=== PATIENT | female | born 1990 | race Caucasian/White ===

== ENCOUNTER → 2021-01-31 | Outpatient (CLI) | payer MEDICAID | END | disposition home or self-care (01) | LOC: LABWHC1 12:24 | PROVIDERS: ATTEND Obstetrics & Gynecology | DX: N92.6 Irregular menstruation, unspecified (principal) | CPT/HCPCS: 36415; 84702 ==

== ENCOUNTER 2021-08-04 10:45 | Day surgery (SDC) | payer MEDICAID ==
[2021-08-01 13:28] VITALS: BMI 28.6
[~2021-08-04 10:45] MED LIST: LACTATED RINGERS 1,000 ML IV SCH
[2021-08-04 11:03] VITALS: RESP 16; TEMP 97.4
[2021-08-04] MEDS ORDERED: LIDOCAINE 1% (10MG/ML) FOR IV START INTRADERMA ONE (11:18)
[2021-08-04] MEDS ORDERED: PROPOFOL 10 MG/ML 20 ML VIAL IV ONE (11:30)
--- NOTE | 2021-08-04 11:42 | P.OP ---
Date of Procedure: 08/04/21 Preoperative Diagnosis: GERD Postoperative Diagnosis: Esophagitis Gastritis Procedure(s) Performed: EGD with biopsy Anesthesia: MAC Surgeon: Hao Briones Estimated Blood Loss (ml): 2 Condition: stable Disposition: PACU Description of Procedure: Patient is brought operative suite placed left lateral venous position underwent sedation per department of anesthesia timeout performed correct patient correct procedure correct site was verified scope was passed from the oropharynx down the esophagus with ease under direct visualization into the stomach and into the first and second portion of the duodenum no abnormalities are noted within the duodenum the scope was withdrawn to the stomach and retroflexed and ample time was allowed for the stomach to insufflate and no significant have a hernia was noted there was some antral gastritis noted biopsy was taken to rule out H. pylori this scope was slowly withdrawn make sure to visualize all cordova and body of the stomach and no other abnormalities were noted the GE junction was identified and there was a mild esophagitis noted biopsies taken to rule out Walton's esophagitis. The scope was then withdrawn back to the esophagus and no other abnormalities are noted patient tolerated the procedure well no apparent complications
[2021-08-04 12:06] VITALS: BP 118/77; PULSE 72
== END 2021-08-04 12:44 | disposition home or self-care (01) ==
LOC: ORWHC2ENDO 10:45
PROVIDERS: ATTEND Student in an Organized Health Care Education/Training Program
DX: K21.9 Gastro-esophageal reflux disease without esophagitis (principal); K21.00 Gastro-esophageal reflux disease with esophagitis, without bleeding; M19.90 Unspecified osteoarthritis, unspecified site; K64.9 Unspecified hemorrhoids; F32.A Depression, unspecified; Z81.8 Family history of other mental and behavioral disorders; F17.200 Nicotine dependence, unspecified, uncomplicated; Z79.899 Other long term (current) drug therapy
CPT/HCPCS: 81025; 88305; 43239; J2704

== ENCOUNTER → 2022-03-16 | Outpatient (CLI) | payer MEDICAID ==
--- NOTE | 2022-03-16 13:45 | US ---
EXAMINATION TYPE: US pelvic complete DATE OF EXAM: 03/16/2022 COMPARISON: NONE CLINICAL HISTORY: N92.6 IRREGULAR MENSTRUATION, UNSPECIFIED. Infertility struggles since IUD was elsy nagi in Mar 2020, no other pelvic issues, G0 TECHNIQUE: TA. Transabdominal sonographic images of the pelvis were acquired. Date of LMP: 2 weeks ago EXAM MEASUREMENTS: Uterus: 8.2 x 4.1 x 3.3 cm Endometrial Stripe: 0.7 cm Right Ovary: 3.2 x 2.9 x 1.7 cm Left Ovary: 3.1 x 2.5 x 1.7 cm 1. Uterus: Anteverted wnl 2. Endometrium: wnl 3. Right Ovary: wnl 4. Left Ovary: 2.0 cm dominate follicle 5. Bilateral Adnexa: wnl 6. Posterior cul-de-sac: wnl IMPRESSION: 1. No evidence for acute process. 2. Endometrium within normal limits for thickness.
== END | disposition home or self-care (01) ==
LOC: RADUSWWP 12:24
PROVIDERS: ATTEND Obstetrics & Gynecology
DX: N92.6 Irregular menstruation, unspecified (principal)
CPT/HCPCS: 76856

== ENCOUNTER → 2022-07-10 | Outpatient (CLI) | payer MEDICAID ==
[2022-07-10 10:44] LABS: Basophils # (A) 0.03 X 10*3/uL (0.00-0.10); Basophils % (A) 0.4 %; Eosinophils # (A) 0.12 X 10*3/uL (0.04-0.35); Eosinophils % (A) 1.6 %; HCT 40.2 % (37.2-46.3); HGB 13.9 g/dL (12.0-15.0); Immature Grans, Automated 0.1 %; Lymphocytes # (A) 2.88 X 10*3/uL (0.90-5.00); Lymphocytes % (A) 39.5 %; MCH 32.2 pg (27.0-32.0); MCHC 34.6 g/dL (32.0-37.0); MCV 93.1 fL (80.0-97.0); Mean Platelet Volume 11.6 fL (9.5-12.2); Monocytes # (A) 0.56 X 10*3/uL (0.20-1.00); Monocytes % (A) 7.7 %; NRBC Per 100 WBC 0 /100 WBCS (0.0-0.0); Neutrophils % (A) 50.7 %; Platelet Count 199 X 10*3/uL (140-440); RBC 4.32 X 10*6/uL (4.10-5.20); RDW 12.2 % (11.5-14.5)
== END | disposition home or self-care (01) ==
LOC: LABPAT 07:04
PROVIDERS: ATTEND Obstetrics & Gynecology
DX: Z01.812 Encounter for preprocedural laboratory examination (principal)
CPT/HCPCS: 36415; 85025

== ENCOUNTER 2022-07-18 06:17 | Day surgery (SDC) | payer MEDICAID ==
[2022-07-13 17:59] VITALS: BMI 28.3
--- NOTE | 2022-07-17 16:31 | P.HPOB ---
History of Present Illness H&P Date: 07/17/22 Chief Complaint: CARO II This is a 32 y.o. female, 0, who presents for colposcopy with loop electrocautery excision procedure due to CARO I & II on colposcopy. She also showed CARO I on endocervical curreting. Her last pap showed low grade cannot rule out high grade squamous intraepithelial lesion. She also had +high risk HPV with types 16 & 18 negative. She does have a previous history of abnormal paps in her 20's, but was normal up until 2019. OB Hx: G0. 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 No current control. Social Hx: . 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 Review of Systems Constitutional: Denies chills, Denies fever Eyes: denies blurred vision, denies pain Ears, nose, mouth and throat: Denies headache, Denies sore throat Cardiovascular: Denies chest pain, Denies shortness of breath Respiratory: Denies cough Gastrointestinal: Reports heartburn, Denies abdominal pain, Denies diarrhea, Denies nausea, Denies vomiting Genitourinary: Reports dysmenorrhea, Reports pelvic pain Menstruation: Reports menses 1-7 days Musculoskeletal: Denies myalgias Integumentary: Denies pruritus, Denies rash Neurological: Denies numbness, Denies weakness Psychiatric: Reports anxiety, Reports depression, Reports irritability Past Medical History Past Medical History: GERD/Reflux, Osteoarthritis (OA) Additional Past Medical History / Comment(s): Joint Pain History of Any Multi-Drug Resistant Organisms: None Reported Additional Past Surgical History / Comment(s): Left Eye 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 Lazy eye (1991, 1993, 1997),EGD Past Anesthesia/Blood Transfusion Reactions: No Reported Reaction Additional Past Anesthesia/Blood Transfusion Reaction / Comment(s): no hx blood transfusion Past Psychological History: Anxiety, Depression Smoking Status: Former smoker Past Alcohol Use History: Rare Past Drug Use History: None Reported - Past Family History Mother Additional Family Medical History / Comment(s): Endometriosis Medications and Allergies Home Medications Medication Instructions Recorded Confirmed Type Omeprazole [PriLOSEC] 40 mg PO HS 08/01/21 07/13/22 History Vit No.180/Iron/Folic 1 each PO DAILY 08/01/21 07/13/22 History [ Plus Tablet] FLUoxetine HCL 40 mg PO HS 07/13/22 07/13/22 History Allergies Allergy/AdvReac Type Severity Reaction Status Date / Time No Known Allergies Allergy Verified 07/18/22 06:39 Exam Osteopathic Statement: *. No significant issues noted on an osteopathic structural exam other than those noted in the History and Physical/Consult. HEENT: within normal limits Heart: regular rate and rhythm Lungs: clear to auscultation bilaterally Abdomen: soft, non-tender Pelvic: uterus small, anteverted, non-tender with no adnexal masses or tenderness. Extremities: neg. Josee's. Assessment and Plan (1) CARO II (cervical intraepithelial neoplasia II) Current Visit: No Status: Acute Code(s): N87.1 - MODERATE CERVICAL DYSPLASIA SNOMED Code(s): 574171835 (2) CARO I (cervical intraepithelial neoplasia I) Current Visit: No Status: Acute Code(s): N87.0 - MILD CERVICAL DYSPLASIA SNOMED Code(s): 230926948 Plan: Proceed with colposcopy with loop electrocautery excision procedure of the cervix. I have discussed the risks, benefits, and alternative therapies for the above- mentioned procedure and for both sedation/anesthesia as well as necessary blood products administration, if indicated, as they pertain to this patient. The patient has indicated her understanding and acceptance of the risks and procedures discussed.
[~2022-07-18 06:17] MED LIST changes: +DEXAMETHASONE SOD PHOSPHATE 4 MG/ML 1 ML VIAL IV ONE; +HYDROmorphone 0.5 MG/0.5 ML SYRINGE IVP PRN; +ONDANSETRON 4 MG/2 ML VIAL IVP ONE; +Pre Op ABX Message 1 EACH MISC MISCELLANE ONE
[2022-07-18 06:51] VITALS: RESP 16
[2022-07-18] MEDS ORDERED: MIDAZOLAM 2 MG/2 ML VIAL ONE (07:18)
[2022-07-18] MEDS ORDERED: fentaNYL (PF) 50 MCG/ML 2 ML AMP ONE (07:18)
[2022-07-18] MEDS ORDERED: SUCCINYLCHOLINE CHLORIDE 200 MG/10 ML VIAL IV ONE (07:18)
[2022-07-18] MEDS ORDERED: PROPOFOL 10 MG/ML 20 ML VIAL IV ONE (07:18)
[2022-07-18] MEDS ORDERED: LIDOCAINE 2% INJ 20 MG/ML (2 ML VIAL) ONE (07:18)
[2022-07-18] MEDS ORDERED: KETOROLAC 15 MG/ML 1 ML VIAL ONE (07:18)
[2022-07-18] MEDS ORDERED: BUPIVACAINE (PF) 0.5% 30 ML VIAL SQ ONE (07:40)
[2022-07-18] MEDS ORDERED: IODINE/POTASS IOD (LUGOLS) BOTTLE TOPICAL ONE (07:40)
[2022-07-18] MEDS ORDERED: LIDOCAINE 1%-EPI 1:100,000 20 ML VIAL SUBMUCOSAL ONE (07:40)
[2022-07-18] MEDS ORDERED: FERRIC SUBSULFATE (MONSELS) JAR TOPICAL ONE (07:45)
[2022-07-18] MEDS ORDERED: ACETIC ACID 15 DROPS/ML DROPS MISCELLANE ONE (07:45)
--- NOTE | 2022-07-18 07:52 | P.OP ---
Date of Procedure: 07/18/22 Preoperative Diagnosis: CARO 1 and 2 Postoperative Diagnosis: Same Procedure(s) Performed: Colposcopy with loop electrocautery excision procedure Anesthesia: SAEEDA Surgeon: Marium Maher Estimated Blood Loss (ml): 2 Pathology: other (Ectocervix with 12 o'clock position marked with a suture) Condition: stable Disposition: same day Indications for Procedure: This is a 32 y.o. female, 0, who presents for colposcopy with loop electrocautery excision procedure due to CARO I & II on colposcopy. She also showed CARO I on endocervical curreting. Her last pap showed low grade cannot rule out high grade squamous intraepithelial lesion. She also had +high risk HPV with types 16 & 18 negative. She does have a previous history of abnormal paps in her 20's, but was normal up until 2019. Operative Findings: Transition zone is seen entirely. Acetowhite and Lugol white areas are noted along the 6:00 border. No mosaicism is visualized. Description of Procedure: The patient is taken to the operating room where she is placed in the dorsal lithotomy position. She is prepped and draped in the normal sterile fashion. Her bladder is a catheter. Examination is done under anesthesia. Uterus is found to be small, anteverted, with no adnexal masses palpated. A coated bivalve speculum was placed in the patient's vagina. Colposcopy is performed using a blue light. Cervix is swabbed with 5% acetic acid solution. The above noted findings are made. Next the cervix is swabbed with Lugol's solution. The same findings were noted. Next the cervix was circumferentially injected with a 50-50 mixture of 1% lidocaine with epinephrine and half percent Marcaine. Approximately 7 mL were used with a spinal needle circumferentially injected around the cervix. Next a large loop was used to swipe from patient's right to left encompassing the entire transition zone. Specimen is marked with a suture at the 12 o'clock position. Next ball-tipped cautery is used to cauterize the bed left behind. Excellent hemostasis is noted. Next Monsel solution is applied. Good hemostasis is noted. All instrument to remove the vagina. All sponge and needle counts are correct. The patient is then taken to recovery room in stable condition.
[2022-07-18 08:19] VITALS: TEMP 96.8
[2022-07-18 09:10] VITALS: BP 116/76; PULSE 61
== END 2022-07-18 09:36 | disposition home or self-care (01) ==
LOC: OR 06:17
PROVIDERS: ATTEND Obstetrics & Gynecology
DX: N87.1 Moderate cervical dysplasia (principal); K21.9 Gastro-esophageal reflux disease without esophagitis; M19.90 Unspecified osteoarthritis, unspecified site; F41.8 Other specified anxiety disorders; F10.90 Alcohol use, unspecified, uncomplicated; Z87.891 Personal history of nicotine dependence; Z84.2 Family history of other diseases of the genitourinary system; Z79.1 Long term (current) use of non-steroidal anti-inflammatories (NSAID); Z79.899 Other long term (current) drug therapy; Z98.890 Other specified postprocedural states
CPT/HCPCS: 57461; 81025; 88307; J2250; J0330; J1100; J2405; J3010; J1885; J2704; J2001

== ENCOUNTER → 2024-03-19 | Outpatient (CLI) | payer MEDICAID ==
--- NOTE | 2024-04-17 12:17 | MR ---
Site ID synapse default Patient Marcia Ruff ID [id number] 1990 Age/Gender: 33Y, F Order # N/A Procedure MRI CSPINE WO CONTRAST Date 03/19/2024 12:49:55 PM EXAMINATION TYPE: MR cervical spine wo con DATE OF EXAM: 03/28/2024 COMPARISON: MR cervical spine 12/16/2014 HISTORY: Neck pain, migraines, blurred vision, weakness and fingers TECHNIQUE: Multiplanar, multisequence images of the cervical spine were acquired without contrast. FINDINGS: Alignment: The cervical vertebral bodies have preserved heights. Alignment is within normal limits gi shelly patient positioning. Bones: Bone signal is within normal limits. Cord: The spinal cord is unremarkable with regards to their signal intensity and morphology. No syrin x identified. Discs: Intervertebral disc signal is maintained. C2-C3: No significant disc pathology. The spinal canal is patent. No neural foraminal stenosis. C3-C4: No significant disc pathology. The spinal canal is patent. No neural foraminal stenosis. C4-C5: No significant disc pathology. The spinal canal is patent. No neural foraminal stenosis. C5-C6: No significant disc pathology. The spinal canal is patent. No neural foraminal stenosis. C6-C7: No significant disc pathology. The spinal canal is patent. No neural foraminal stenosis. C7-T1: No significant disc pathology. The spinal canal is patent. No neural foraminal stenosis. Other: Cerebellar tonsillar descent into the foramen magnum about 6 mm. Similar to prior exam. IMPRESSION: 1. No evidence for disc herniation or significant spinal canal stenosis. 2. Similar cerebellar tonsillar ectopia without evidence for syrinx.
--- NOTE | 2024-04-17 12:18 | MR ---
Site ID synapse default Patient Marcia Ruff ID [id number] 1990 Age/Gender: 33Y, F Order # N/A Procedure MRI BRAIN W/WO CONTRAST Date 03/19/2024 1:15:16 PM INDICATION: Patient age: Female; 43 year old; Reason for study: Neck pain, migraines, blurred vision, weakness of fingers COMPARISON: MRI brain 11/03/2014, MR C-spine 03/19/2024. TECHNIQUE: Multi planar, multi sequence imaging was performed through the brain. The patient was then given 8 cc of Gadavist intravenously and multi planar, T1 fat-saturation images were obtained. FINDINGS: The henson-white junctions, ventricular system, basal cisterns appear unremarkable. Incidental small ca vum septum pellucidum. Downward descent of the cerebellar tonsils into the foramen magnum of approxim ately 9 mm (series 801, image 73). Retrospectively similar to prior exam. Diffusion-weighted imaging shows no evidence of restricted diffusion to suggest acute/subacute infarct. Intracranial arterial fl ow voids are maintained. Midline structures show no abnormality. Bilateral frontal and parietal lobe subcortical white matter foci redemonstrated. Largest is within the left frontal lobe measuring up to 4 mm (series 601, image 21). Approximately 13 lesions. Mildly increased number from prior exam, prev iously 5. No corresponding enhancement. The susceptibility weighted images do not reveal any evidence for micro-hemorrhage. After administration of gadolinium, no abnormal enhancement is seen. The bone marrow signal is within normal limits. The paranasal sinuses and globes are unremarkable. IMPRESSION: 1. Mild increase in subcortical white matter foci from prior MRI 11/03/2014. No corresponding enhance ment. Etiology is again include multiple sclerosis versus changes from migraine headaches versus vasc ulitis versus other etiologies. 2. No evidence of acute/subacute infarct. No abnormal contrast enhancement. 3. 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 No syrinx iden tified on concurrent MRI cervical spine.
== END | disposition home or self-care (01) ==
LOC: RADMRIMAIN 13:30
PROVIDERS: ATTEND Psychiatry & Neurology Neurology
DX: G43.719 Chronic migraine without aura, intractable, without status migrainosus (principal); M46.02 Spinal enthesopathy, cervical region; Q04.8 Other specified congenital malformations of brain; R90.82 White matter disease, unspecified
CPT/HCPCS: 70553; 72141; A9585

== ENCOUNTER → 2024-07-05 | Outpatient (CLI) | payer MEDICAID ==
[2024-07-05 13:56] LABS: BUN/Creat Ratio 13.67 Ratio (12.00-20.00); Blood Urea Nitrogen 12.3 mg/dL (9.0-27.0); Calcium 9.1 mg/dL (8.7-10.3); Carbon Dioxide 21.1 mmol/L (21.6-31.8); Chloride 108 mmol/L (96-109); Glucose 106 mg/dL (70-110); Potassium 4.3 mmol/L (3.5-5.5); Sodium 140 mmol/L (135-145)
== END | disposition home or self-care (01) ==
LOC: LABWHC1 09:01
PROVIDERS: ATTEND Psychiatry & Neurology Neurology
DX: E87.6 Hypokalemia (principal); T50.2X5A Adverse effect of carbonic-anhydrase inhibitors, benzothiadiazides and other diuretics, initial encounter
CPT/HCPCS: 36415; 80048